=== PATIENT | male | born 1960 | race Caucasian/White ===

== ENCOUNTER 2018-12-19 05:21 | Day surgery (SDC) | payer MEDICAID ==
[2018-12-04 10:05] LABS: APPEARANCE,URINE CLEAR; BILIRUBIN,URINE NEGATIVE (NEGATIVE); COLOR,URINE YELLOW; GLUCOSE, URINE NEGATIVE (NEGATIVE); KETONES,URINE NEGATIVE (NEGATIVE); LEUKOCYTE ESTERASE,URINE NEGATIVE (NEGATIVE); NITRITE,URINE NEGATIVE (NEGATIVE); PROTEIN,URINE NEGATIVE (NEGATIVE); URINE SPECIFIC GRAVITY 1.021; UROBILINOGEN,URINE NEGATIVE mg/dL (<2.0)
[2018-12-04 10:05] LABS: HEMATOCRIT 47.8 % (37.9-51.0); HEMOGLOBIN 15.9 g/dL (13.5-17.0); MEAN CORPUSCULAR HEMOGLOBIN 29.1 pg (27.0-33.4); MEAN CORPUSCULAR HGB CONC 33.3 g/dL (32.0-36.0); MEAN CORPUSCULAR VOLUME 87 fl (80-97); PLATELET COUNT 195 10^3/uL (150-450); RED BLOOD COUNT 5.47 10^6/uL (4.35-5.55); RED CELL DISTRIBUTION WIDTH 15.4 % (11.5-14.0); WHITE BLOOD COUNT 13.2 10^3/uL (4.0-10.5)
--- NOTE | 2018-12-04 10:07 | RADIOLOGY REPORT (SQ) ---
EXAM DESCRIPTION: CHEST PA/LATERAL COMPLETED DATE/TIME: 12/04/2018 9:55 am REASON FOR STUDY: PRE-OP COMPARISON: None. EXAM PARAMETERS: NUMBER OF VIEWS: two views TECHNIQUE: Digital Frontal and Lateral radiographic views of the chest acquired. RADIATION DOSE: NA LIMITATIONS: none FINDINGS: LUNGS AND PLEURA: Fairly extensive pleural changes in the left upper 2/3's of the hemitho rax, likely on a chronic basis. Loss of volume is also noted. The right lung is clear. No pneumoth orax or pleural effusion. MEDIASTINUM AND HILAR STRUCTURES: No masses or contour abnormalities. HEART AND VASCULAR STRUCTURES: Heart normal size. No evidence for failure. BONES: No acute findings. HARDWARE: None in the chest. OTHER: Hardware anterior fusion visualized lower cervical-thoracic spine. IMPRESSION: 1. Chronic pleural changes and loss of volume in the left hemithorax. No acute finding s. TECHNICAL DOCUMENTATION: JOB ID: [id number] [employer]- All Rights Reserved Reading location - IP/workstation name: [email or web address]
[2018-12-04 10:31] LABS: ANION GAP 6 (5-19); BLOOD UREA NITROGEN 16 mg/dL (7-20); CALCIUM 9.7 mg/dL (8.4-10.2); CARBON DIOXIDE 31 mmol/L (22-30); CHLORIDE 100 mmol/L (98-107); GLUCOSE 93 mg/dL (75-110); POTASSIUM 4.5 mmol/L (3.6-5.0); SODIUM 137.4 mmol/L (137-145)
--- NOTE | 2018-12-04 20:03 | EKG REPORT ---
SEVERITY:- ABNORMAL ECG - SINUS RHYTHM CONSIDER LEFT VENTRICULAR HYPERTROPHY NONSPECIFIC T ABNORMALITIES, INFERIOR LEADS : Confirmed by: Francisca Rogers MD 04-Dec-2018 20:02:38
[~2018-12-19 05:21] MED LIST: LACTATED RINGERS 1000 ML IV PRN; LIDOCAINE 0.5% INJ-PF (5 MG/ML) 50 ML SDV SUBCUT PRN; VANCOMYCIN HCL 1,000 MG in DEXTROSE 5%-WATER 250 ML IV PRN
[2018-12-19] MEDS ORDERED: FENTANYL CITRATE INJ/PF 100 MCG/2 ML AMPUL ONE (06:44)
[2018-12-19] MEDS ORDERED: KETOROLAC TROMETHAMINE 60 MG/2 ML SDV ONE (06:44)
[2018-12-19] MEDS ORDERED: MORPHINE SULFATE 10 MG/ML INJ ONE (06:45)
[2018-12-19] MEDS ORDERED: DEXAMETHASONE SOD PHOSPHATE INJ 4 MG/1 ML VIAL ONE (06:45)
[2018-12-19] MEDS ORDERED: ONDANSETRON HCL INJ/PF 4 MG/2 ML SDV ONE (06:45)
[2018-12-19] MEDS ORDERED: EPHEDRINE SULFATE INJ 50 MG/1 ML AMPULE ONE (06:45)
[2018-12-19] MEDS ORDERED: PROPOFOL INJ 200 MG/20 ML VIAL IV ONE (06:45)
[2018-12-19] MEDS ORDERED: ACETAMINOPHEN 1,000 MG/100 ML RTUPB IV ONE (06:45)
[2018-12-19] MEDS ORDERED: MIDAZOLAM 2 MG/2 ML INJ ONE (06:45)
[2018-12-19] MEDS ORDERED: LIDOCAINE 4% INJ/PF (40 MG/ML) 5 ML AMPUL ONE (06:46)
[2018-12-19] MEDS ORDERED: LIDOCAINE 1% INJ-PF (10 MG/ML) 30 ML SDV ONE (06:47)
[2018-12-19] MEDS ORDERED: EPINEPHRINE INJ/PF 1 MG/1 ML AMPULE ONE (07:16)
[2018-12-19] MEDS ORDERED: BUPIVACAINE HCL 0.5 % INJ/PF 30 ML SDV ONE (07:16)
[2018-12-19] MEDS ORDERED: PROMETHAZINE HCL INJ 25 MG/1 ML VIAL IV PRN ×2 (08:20)
[2018-12-19] MEDS ORDERED: MEPERIDINE HCL/PF INJ 25 MG/1 ML DISP.SYRIN IV PRN (08:20)
[2018-12-19] MEDS ORDERED: DIPHENHYDRAMINE HCL 50 MG/ML VIAL IV PRN (08:20)
[2018-12-19] MEDS ORDERED: FENTANYL CITRATE INJ/PF 100 MCG/2 ML AMPUL IV PRN ×3 (08:20)
[2018-12-19] MEDS ORDERED: MORPHINE SULFATE 10 MG/ML INJ IV PRN (08:20)
[2018-12-19] MEDS ORDERED: OXYCODONE-ACETAMINOPHEN 5-325 MG TABLET PO PRN ×3 (08:20→10:34)
[2018-12-19] MEDS ORDERED: ONDANSETRON HCL INJ/PF 4 MG/2 ML SDV IV PRN ×2 (08:20→10:34)
[2018-12-19] MEDS: HYDROMORPHONE HCL INJ/PF 2 MG/ML AMPULE ONE ×2 (10:10→10:15)
--- NOTE | 2018-12-19 10:25 | Discharge Summary ---
Discharge Summary (SDC) - Discharge Final Diagnosis: Right shoulder rotator cuff tear Date of Surgery: 12/19/18 Discharge Date: 12/19/18 Condition: Good Treatment or Instructions: Schedule Follow Up w/ Dr. Linus Dejesus @ [facility] to be seen in 10-14 days or as scheduled [place]: [place]: [place]: May remove dressing on postop day #3, keep incision covered and dry. Cryocuff to shoulder May begin pendulum exercises along w/ hand, wrist and elbow range of motion 4x per day or as tolerated. May remove sling for hygiene purposes otherwise continue it at all times. Stool softener of choice when on pain medication. Prescriptions: Oxycodone HCl [Oxy-Ir 5 mg Tablet] 5 mg PO Q6HP PRN #28 tab PRN Reason: Ketorolac Tromethamine [Toradol 10 mg Tablet] 10 mg PO Q8HP PRN #12 tablet PRN Reason: Referrals: NATASHA MILNER MD [Primary Care Provider] - Discharge Diet: As Tolerated Respiratory Treatments at Home: Deep Breathing/Coughing Discharge Activity: No Driving, No Lifting Over 10 Pounds, No Lifti ng/Push/Pulling Report the Following to Your Physician Immediately: Fever over 101 Degrees, Unusual Bleeding, Redness, Swelling, Warmth, Increased Soreness
--- NOTE | 2018-12-19 10:33 | Operative Report ---
Operative Report DATE OF SURGERY: 12/19/18 PREOPERATIVE DIAGNOSIS: Right shoulder subscapularis tear, impingement syndrome, degenerative labrum POSTOPERATIVE DIAGNOSIS: Right shoulder subscapularis tear, partial bursal sided rotator cuff tear, subcoracoid/subacromial bursitis, degenerative SLAP tear OPERATION: Right shoulder arthroscopy with subscapularis/rotator cuff repair, acromioplasty, subacromial/subcoracoid bursectomy open subpectoralis biceps tenodesis SURGEON: AP JONES ANESTHESIA: GA COMPLICATIONS: None ESTIMATED BLOOD LOSS: Minimal PROCEDURE: Indication for above procedure: 58-year-old male with long-standing history of right shoulder discomfort. Attempted conservative measures including anti-inflammatories and injections without resolution of patient's symptoms. At that point decision was made to proceed with MRI which demonstrated subscapularis and rotator cuff tear risks and benefits of operative procedure were explained patient verbalized understanding consented for surgical procedure. Procedure In Detail: Patient was seen and evaluated in the preoperative holding area. The RIGHT upper extremity was initialized and marked. Patient received vancomycin IV for bacterial prophylaxis. Patient was taken back to the operative room where transferred to the operative table and placed under general anesthesia. Once they were adequately anesthetized a patient was placed in the beachchair position. Nonoperative upper extremity bilateral lower extremity were carefully padded, cervical spine placed in neutral position all bony prominences padded. A surgical team debriefing was performed ensuring all instrumentation was available, the surgical procedure was discussed with possible concerns reviewed. The upper extremity was prepped with ChloraPrep and draped in a sterile fashion. A timeout was done identifying correct patient, procedure and extremity everyone in attendance agree with this and verbalized no concerns. Posterior lateral portal was established. Arthroscope was introduced into the glenohumeral joint anterior superior portal established. Diagnostic arthroscopy demonstrate full-thickness subscapularis tear of the lesser tuberosity. Significant degeneration of the biceps tendon along the biceps as it entered to the intertrabecular groove. No evidence of degenerative changes. Mild fraying along the anterior aspect of the supraspinatus no evidence of full-thickness tear. The rotator interval was then debrided and adhesions along the subscapularis were released. Subcoracoid bursectomy was performed to identify the subscapularis. Adhesions to the superior glenohumeral ligament were also released to obtain adequate excursion of the subscapularis. There is notable scarring of the subscapularis to the glenoid. Once adequately freed a cuff grasper was introduced which demonstrated adequate excursion for repair to the lesser tuberosity. The biceps tendon was then released from its insertion. Labrum debrided to a stable base. Arthroscope was then introduced into the subacromial space. Lateral portal was established. Subacromial bursectomy was then performed. There is no evidence of full-thickness rotator cuff tear but the subscapularis tear could be identified anteriorly. The coracoacromial ligament was then released but not excised and a acromioplasty performed. A fast pass skin was then placed to the lateral portal and the lesser tuberosity was debrided and with the use of a bur decorticated down to good cancellus bone. Via the anterior superior portal a swivel lock anchor was placed into the lesser tuberosity. Horizontal mattress was placed in the subscapularis with a fiber tape suture. This was then placed through a swivel lock anchor which was docked along the laterally providing a double row fixation. This did provide compression of the subscapularis down to bone. At completion there was a interstitial tear of the rotator cuff intrasubstance along the anterior supraspinatus. With the remaining stitch within the lateral swivel lock anchor and horizontal mattress sutures placed through the supraspinatus interstitial tear and secured. At completion was adequate stability throughout range of motion without evidence of limited motion. Attention then turned to biceps tenodesis. Longitudinal skin incision was made along the inferior third of the pectoralis major. Blunt dissection was performed identifying the inferior border of the pectoralis major. Any peripheral vasculature was carefully coagulated. I then identified the tenotomized long head of the biceps which was retrieved and brought out the wound. The tendon was then secured 2 centimeters distal to the musculotendinous junction with a #2 fiber loop and the remaining diseased portion of the biceps was excised. The Arthrex biceps tenodesis button was then secured to my biceps tendon. Under direct visualization I then cleared an area along the anterior aspect of the humerus and drilled unicortically. The button was then placed into the unicortical hole and the biceps tendon was shuttled to the anterior cortex of the humerus. I then checked stability of the button confirming maximal fixation. Utilizing the free needle one limb of the remaining FiberWire was secured to the biceps providing further fixation. The elbow was then placed through range of motion to ensure appropriate tension of the biceps with flexion and extension. The wound was then copiously irrigated with normal saline. Any peripheral vasculature was carefully coagulated with Bovie cautery. Skin was closed a running subcuticular 4-0 Monocryl suture reinforced with Dermabond and Steri-Strips. Portal holes were closed with interrupted 3-0 nylon suture. 30 cc of 0.5% bupivacaine without epinephrine was injected for postoperative pain control. Sponge counts, instrument counts, needle counts were correct. Patient was then awoken from anesthesia. Transferred from the operating room table to the operating room stretcher. There was no intraoperative complications patient tolerated procedure well stable to PACU. Postop plan: Patient will follow-up the office in 2 weeks for wound check. We will begin physical therapy 4 weeks postop day as per subscapularis repair.
[2018-12-19] MEDS ORDERED: HYDROMORPHONE HCL INJ/PF 2 MG/ML AMPULE IV PRN (10:34)
[2018-12-19] MEDS ORDERED: OXYCODONE-ACETAMINOPHEN 5-325 MG TABLET ONE (11:14)
[2018-12-19 12:53] VITALS: BP 128/86
[2018-12-19] MEDS ORDERED: PHENYLEPHRINE HCL INJ/PF 10 MG/1 ML SDV ONE (13:43)
[2018-12-19] MEDS ORDERED: ROCURONIUM BROMIDE INJ 50 MG/5 ML VIAL IV ONE (13:43)
== END 2018-12-19 12:05 | disposition home or self-care (01) ==
LOC: OROUT 05:21
PROVIDERS: ATTEND Orthopaedic Surgery
DX: S43.431A Superior glenoid labrum lesion of right shoulder, initial encounter (principal); X58.XXXA Exposure to other specified factors, initial encounter; M75.21 Bicipital tendinitis, right shoulder; M25.511 Pain in right shoulder; M75.121 Complete rotator cuff tear or rupture of right shoulder, not specified as traumatic; M75.51 Bursitis of right shoulder; Z88.0 Allergy status to penicillin; Z79.899 Other long term (current) drug therapy; E78.00 Pure hypercholesterolemia, unspecified; J44.9 Chronic obstructive pulmonary disease, unspecified; I25.2 Old myocardial infarction; I10 Essential (primary) hypertension; Z87.891 Personal history of nicotine dependence; I25.10 Atherosclerotic heart disease of native coronary artery without angina pectoris
CPT/HCPCS: 93005; 36415 ×2; 84132; 85027; 80048; 81001; 71046; 93010; 29827; 29826; 24340; C1713 ×4; J2250; J3490 ×3; J1100; J0171; J1885; J3010; J2270; J1170; J2370; J2405; J7060; J2704; J3370; J0131; 1630